=== PATIENT | male | born 1960 | race Caucasian/White ===

== ENCOUNTER 2024-10-12 17:11 | Inpatient (IN) | payer BC, OTHER ==
[2024-10-12] MEDS ORDERED: Sodium Chloride 0.9% 10 ML Syringe FLUSH PRN (17:19)
[2024-10-12 17:36] LABS: BASOPHILS PERCENT AUTO 0.1 % (0.0-1.0); EOSINOPHILS PERCENT AUTO 0.1 % (1.0-3.0); HEMATOCRIT 49.2 % (40.0-54.0); HEMOGLOBIN 16.7 g/dL (14.0-18.0); LYMPHOCYTES PERCENT AUTO 8.4 % (20.5-50.1); MEAN CORPUSCULAR HEMOGLOBIN 32.9 pg (27.0-34.0); MEAN CORPUSCULAR HGB CONC 33.9 g/dL (33.0-35.0); MONOCYTES PERCENT AUTO 5.1 % (2-8); NEUTROPHILS PERCENT AUTO 86.3 % (42.2-75.2); PLATELET COUNT,PLT 230 10^3/uL (150-450); RED BLOOD CELL COUNT 5.07 10^6/uL (4.6-6.2); WHITE BLOOD CELL COUNT,WBC 18.8 10^3/uL (5.0-10.0)
[2024-10-12 17:45] LABS: APPEARANCE,URINE CLEAR (CLEAR); BILIRUBIN,URINE SMALL (NEGATIVE); COLOR,URINE DARK YELLOW (YELLOW); GLUCOSE,URINE NEGATIVE (NEGATIVE); KETONES,URINE TRACE (NEGATIVE); LEUKOCYTE ESTERASE,URINE TRACE (NEGATIVE); NITRITE,URINE NEGATIVE (NEGATIVE); OCCULT BLOOD,URINE TRACE-INTACT (NEGATIVE); PROTEIN,URINE 100 (NEGATIVE)
[2024-10-12 17:59] LABS: LACTIC ACID 1.1 mmol/L (0.4-2.0)
[2024-10-12] MEDS: Sodium Chloride 0.9% 1,000 ML IV ONE ×2 (18:09→19:09)
[2024-10-12] MEDS: cefTRIAXone 1 GM Vial IVPUSH ONE (18:09)
[2024-10-12 18:18] LABS: ALBUMIN 3.7 g/dL (3.4-5.0); ANION GAP 16.2 mEq/L (7-13); BILIRUBIN TOTAL 1.7 mg/dL (0.2-1.0); BUN/CREATININE RATIO 11.2 (No establ ref range); C-REACTIVE PROTEIN 10.92 ng/dL (<=0.50); CALCIUM 9.1 mg/dL (8.5-10.1); CREATININE 1.43 mg/dL (0.70-1.30); EST CRCL DRUG DOSING (CG) 64.91 mL/min; POTASSIUM,K 4.2 mmol/L (3.5-5.1); PROTEIN TOTAL,TP 7.4 g/dL (6.4-8.2)
[2024-10-12 18:23] LABS: BACTERIA,URINE MODERATE /HPF (0-FEW/HPF); EPITHELIAL CELLS,URINE FEW /HPF (NOT SEEN); MUCUS,URINE FEW /LPF (NOT SEEN); RBC,URINE 0-5 /HPF (0-5); WBC,URINE 50-75 /HPF (0-5/HPF)
[2024-10-12] MEDS: Iopamidol 612 MG/ML 100 ML Bottle IVPUSH ONE (18:36)
[2024-10-12] MEDS: Ciprofloxacin in D5W 400 MG in Premix Bag 1 BAG IV ONE (20:23)
[2024-10-12] MEDS: Tamsulosin 0.4 MG Cap.ER PO ONE (21:03)
[2024-10-12] MEDS: Doxycycline 100 MG in Sodium Chloride 0.9% 100 ML IV SCH (21:03)
[2024-10-12] MEDS ORDERED: Ondansetron 4 MG/2 ML SDV IVPUSH PRN (22:16)
[2024-10-12] MEDS: Acetaminophen 500 MG Tab PO ONE (22:59)
[2024-10-12] MEDS: Lactated Ringers 1,000 ML IV SCH (23:01)
[2024-10-13] MEDS: Acetaminophen 325 MG Tab PO PRN (05:51)
[2024-10-13] MEDS: Heparin Sodium 5,000 Units/ML Vial SUBCUT SCH (05:51)
[2024-10-13 06:34] LABS: BASOPHILS PERCENT AUTO 0.1 % (0.0-1.0); EOSINOPHILS PERCENT AUTO 0.1 % (1.0-3.0); HEMATOCRIT 42.6 % (40.0-54.0); HEMOGLOBIN 14.3 g/dL (14.0-18.0); LYMPHOCYTES PERCENT AUTO 3.8 % (20.5-50.1); MEAN CORPUSCULAR HEMOGLOBIN 32.6 pg (27.0-34.0); MEAN CORPUSCULAR HGB CONC 33.6 g/dL (33.0-35.0); MONOCYTES PERCENT AUTO 7.7 % (2-8); NEUTROPHILS PERCENT AUTO 88.3 % (42.2-75.2); PLATELET COUNT,PLT 177 10^3/uL (150-450); RED BLOOD CELL COUNT 4.39 10^6/uL (4.6-6.2); WHITE BLOOD CELL COUNT,WBC 16.8 10^3/uL (5.0-10.0)
[2024-10-13 06:54] LABS: ALBUMIN 2.8 g/dL (3.4-5.0); ANION GAP 16.8 mEq/L (7-13); BILIRUBIN DIRECT 0.3 mg/dL (0.0-0.2); BILIRUBIN TOTAL 1.3 mg/dL (0.2-1.0); CALCIUM 8.4 mg/dL (8.5-10.1); CREATININE 1.22 mg/dL (0.70-1.30); EST CRCL DRUG DOSING (CG) 76.09 mL/min; POTASSIUM,K 3.8 mmol/L (3.5-5.1); PROTEIN TOTAL,TP 6.6 g/dL (6.4-8.2)
[2024-10-13 06:58] LABS: A/G RATIO 0.74
[2024-10-13] MEDS: Doxycycline 100 MG in Sodium Chloride 0.9% 100 ML IV SCH (08:24)
[2024-10-13] MEDS: Ciprofloxacin in D5W 400 MG in Premix Bag 1 BAG IV SCH (09:39)
[2024-10-13] MEDS: Tamsulosin 0.4 MG Cap.ER PO SCH (09:43)
[2024-10-13] MEDS: cefTRIAXone 2 GM Vial IVPUSH SCH (10:50)
[2024-10-14 08:40] LABS: HEMOGLOBIN A1C 5.7 % (<5.7)
[2024-10-14] MEDS: Ciprofloxacin 500 MG Tab PO SCH (09:11)
[2024-10-15 06:36] LABS: BASOPHILS PERCENT AUTO 0.4 % (0.0-1.0); EOSINOPHILS PERCENT AUTO 2.4 % (1.0-3.0); HEMATOCRIT 40.7 % (40.0-54.0); HEMOGLOBIN 13.6 g/dL (14.0-18.0); MEAN CORPUSCULAR HEMOGLOBIN 32.3 pg (27.0-34.0); MEAN CORPUSCULAR HGB CONC 33.4 g/dL (33.0-35.0); MEAN CORPUSCULAR VOLUME 96.7 fL (80-100); MONOCYTES PERCENT AUTO 13.3 % (2-8); NEUTROPHILS PERCENT AUTO 68.9 % (42.2-75.2); PLATELET COUNT,PLT 209 10^3/uL (150-450); RED BLOOD CELL COUNT 4.21 10^6/uL (4.6-6.2); WHITE BLOOD CELL COUNT,WBC 7.1 10^3/uL (5.0-10.0)
== END 2024-10-15 12:41 | disposition home or self-care (01) | DRG 872 ==
LOC: DL.ED 17:11 → DL.MS 20:55
PROVIDERS: ADMIT Internal Medicine; ATTEND Internal Medicine
DX: A41.51 Sepsis due to Escherichia coli [E. coli] (principal); N17.9 Acute kidney failure, unspecified; N39.0 Urinary tract infection, site not specified; N41.9 Inflammatory disease of prostate, unspecified; E78.00 Pure hypercholesterolemia, unspecified; I10 Essential (primary) hypertension; E86.0 Dehydration; N40.1 Benign prostatic hyperplasia with lower urinary tract symptoms; N32.89 Other specified disorders of bladder; R16.1 Splenomegaly, not elsewhere classified; R65.20 Severe sepsis without septic shock; R73.03 Prediabetes
CPT/HCPCS: 36415; 74177; 80048; 80053; 80076; 81001; 83036; 83605; 84145; 85025; 86140; 87040; 87077; 87086; 87088; 87186; 87491; 87563; 87591; 99223; 99233; 99239; A9270-GY; G0103; J0696; J0744; J1644; J3490; J7030; J7120; Q9967